=== PATIENT | female | born 1940 | race Caucasian/White ===

== ENCOUNTER → 2018-07-23 | Outpatient (REF) | payer MEDICARE, OTHER ==
[~2018-07-23] MED LIST: ANTIVERT25 MG PO; BACTRIM DS1 TAB PO; CRESTOR5 MG PO; SIMVASTATIN5 MG PO; ZOFRAN ODT4 MG PO
== END | disposition home or self-care (01) ==
LOC: DI 12:16
PROVIDERS: ATTEND Orthopaedic Surgery
DX: M25.561 Pain in right knee (principal); Z47.1 Aftercare following joint replacement surgery; Z96.651 Presence of right artificial knee joint